=== PATIENT | male | born 1960 | race Two or more races ===

== ENCOUNTER 2021-08-20 14:55 | Outpatient (CLI) | payer OTHER | END 2021-08-20 15:15 | disposition home or self-care (01) | LOC: PPH VACUNA 14:55 | PROVIDERS: ATTEND Emergency Medicine Pediatric Emergency Medicine | DX: Z23 Encounter for immunization (principal) ==

== ENCOUNTER 2023-03-11 07:42 | Outpatient (CLI) | payer OTHER | END 2023-03-11 07:48 | disposition home or self-care (01) | LOC: SONOGRAMA 07:42 | PROVIDERS: ATTEND Internal Medicine Gastroenterology | DX: R16.0 Hepatomegaly, not elsewhere classified (principal) ==

== ENCOUNTER 2024-08-29 07:21 | Outpatient (CLI) | payer OTHER | END 2024-08-29 07:32 | disposition home or self-care (01) | LOC: SONOGRAMA 07:21 | PROVIDERS: ATTEND Internal Medicine Gastroenterology | DX: R16.1 Splenomegaly, not elsewhere classified (principal) ==

== ENCOUNTER 2025-09-24 07:13 | Outpatient (CLI) | payer OTHER | END 2025-09-24 07:16 | disposition home or self-care (01) | LOC: SONOGRAMA 07:13 | PROVIDERS: ATTEND Urology | DX: N40.0 Benign prostatic hyperplasia without lower urinary tract symptoms (principal); R31.1 Benign essential microscopic hematuria ==